=== PATIENT | female | born 1995 | race African-American/Black ===

== ENCOUNTER 2024-11-16 14:01 | Emergency (ER) | payer OTHER ==
[~2024-11-16] VITALS: Ht 162.6 cm; Wt 69.1 kg
[2024-11-16 14:05] VITALS: BP 130/81; TEMP 96.7; O2SAT 98
[2024-11-16] MEDS ORDERED: ONDA-282 PO (16:31)
== END 2024-11-16 16:41 | disposition home or self-care (01) ==
LOC: M ED 14:01
DX: O99.511 Diseases of the respiratory system complicating pregnancy, first trimester (principal); B97.4 Respiratory syncytial virus as the cause of diseases classified elsewhere; Z3A.00 Weeks of gestation of pregnancy not specified

== ENCOUNTER → 2025-03-05 | Outpatient (CLI) | payer OTHER ==
[~2025-03-05] MED LIST: ONDA-282 PO
== END ==
LOC: M RAD 14:15
PROVIDERS: ATTEND Nurse Practitioner Women's Health
DX: Z36.89 Encounter for other specified antenatal screening (principal); Z3A.21 21 weeks gestation of pregnancy

== ENCOUNTER 2025-07-22 01:01 | Emergency (ER) | payer OTHER ==
[~2025-07-22] VITALS: Ht 162.6 cm; Wt 68.9 kg
[2025-07-22 01:03] VITALS: BP 140/112; TEMP 97.8; O2SAT 97
[2025-07-22] MEDS ORDERED: LABE100T6 (01:06)
== END 2025-07-22 03:30 | disposition left against medical advice (07) ==
LOC: M ED 01:01
DX: Z53.21 Procedure and treatment not carried out due to patient leaving prior to being seen by health care provider (principal)